=== PATIENT | male | born 1955 | race Caucasian/White ===

== ENCOUNTER 2017-03-12 07:08 | Day surgery (SDC) | payer OTHER ==
[~2017-03-12] VITALS: Ht 170.2 cm; Wt 87.7 kg
[2017-03-12 07:32] VITALS: Ht 170.2 cm; Wt 87.7 kg
[2017-03-12] MEDS ORDERED: SIMV20TA PO (07:42)
[2017-03-12] MEDS ORDERED: ASPI-664 PO (07:42)
[2017-03-12] MEDS ORDERED: ANTIDEPRESSANT (07:42)
[2017-03-12 08:11] VITALS: BP 123/75; PULSE 58; RESP 23
[2017-03-12] MEDS ORDERED: PROPOFOL 20 ML ONE (08:15)
[2017-03-12] MEDS ORDERED: MIDAZOLAM 1 MG/ML 2 ML INJ ONE (08:16)
[2017-03-12] MEDS ORDERED: FENTAnyl 50 MCG/ML VIAL ONE (08:16)
--- NOTE | 2017-03-12 09:08 | OPPN ---
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
[2017-03-12 09:46] VITALS: BP 131/71; PULSE 55; RESP 18
--- NOTE | 2017-03-13 04:13 | GILP ---
DATE OF PROCEDURE: 03/12/2017 NAME OF PROCEDURES: Colonoscopy and biopsy. SURGEON: Vijaya Roman MD PREOPERATIVE DIAGNOSIS: 1. Change in bowel habit. 2. History of rectal bleeding. POSTOPERATIVE DIAGNOSES 1. Colonoscopy all the way to the cecum. 2. Small right colon polyp was removed using the biopsy forceps. 3. Internal hemorrhoids. INDICATION FOR THE PROCEDURE: Mr. Lashay Dahl is a 62-year-old male patient who noticed a flores e in the bowel habit. He had history of rectal bleeding. The patient was scheduled for colonoscopy for further evaluation. The procedure and possible complications are well explained to the patient. The patient understood and consented to the procedure. DESCRIPTION OF PROCEDURE: Under the influence of anesthesia, the colonoscope was carefully introduc ed in the rectum and under direct vision it was advanced all the way to the cecum. FINDINGS: The patient had a right colon polyp and it was removed using the biopsy forceps. He had internal hemorrhoids. He tolerated the procedure very well and there was no complication from the procedure. At the end o f the procedure, he was awake with stable vital signs and he was discharged home to the care of his family. IMPRESSION: Please see postoperative diagnosis. PLAN: 1. Await histopathology report. 2. Next screening colonoscopy in 10 years. Dictated By: VIJAYA WEEKS/RUBI Conf#: [id number] DID#: [id number]
== END 2017-03-12 10:52 | disposition home or self-care (01) ==
LOC: GIL 07:08
PROVIDERS: ATTEND Internal Medicine Gastroenterology
DX: R19.4 Change in bowel habit (principal); D12.6 Benign neoplasm of colon, unspecified; K64.8 Other hemorrhoids; J44.9 Chronic obstructive pulmonary disease, unspecified; E78.5 Hyperlipidemia, unspecified
CPT/HCPCS: 45380; J2250; J3010; Z7610; 88305